=== PATIENT | female | born 1980 | race Caucasian/White ===

== ENCOUNTER 2017-05-07 23:11 | Emergency (ER) | payer MEDICAID ==
[2017-05-08 00:10] LABS: URINE BILIRUBIN NEGATIVE (NEGATIVE); URINE BLOOD SMALL (NEGATIVE); URINE GLUCOSE (UA) 500 mg/dL (NEGATIVE); URINE KETONE NEGATIVE (NEGATIVE); URINE PROTEIN NEGATIVE (NEGATIVE); URINE UROBILINOGEN 0.2 E.U./dL (0.2 - 1.0)
[2017-05-08 00:13] LABS: URINE COLOR YELLOW
[2017-05-08 00:18] LABS: URINE BACTERIA MODERATE /hpf (NONE SEEN); URINE EPITHELIAL CELLS MANY /lpf (FEW)
[2017-05-08] MEDS ORDERED: Morphine Sulfate 2 mg/mL 1mL Syr IVP ONE (00:29)
--- NOTE | 2017-05-08 00:29 | ED Physician Chart ---
Chief Complaint/HPI - Patient Information Date Seen:: 05/07/17 Time Seen:: 23:20 Chief Complaint:: Flank Pain History of Present Illness:: onset x one day of flank pain and hematuria; pt denies H/As, Neck Pain, C/P, SOB , Cough, Abd. Pain, A/N/V/D/C, fever, chills, or pelvic pain Allergies:: Allergies Allergy/AdvReac Type Severity Reaction Status Date / Time ibuprofen [From Motrin] Allergy Verified 05/07/17 23:35 ketorolac [From Toradol] Allergy Verified 05/07/17 23:35 Vitals:: Vital Signs - 8 hr 05/07/17 23:20 Temp 97.7 F HR 113 RR 18 BP 129/76 O2 Sat % 100 Historian:: Patient Review:: Nurse's Note Reviewed Review of Systems - Review of Systems General/Constitutional: Fever, Chills, No weight loss, No weakness, No diaphoresis, No edema, No loss of appetite Skin: No skin lesions, No rash, No bruising Head: No headache, No light-headedness Eyes: No loss of vision, No pain, No diplopia ENT: No earache, No nasal drainage, No sore throat, No tinnitus Neck: No neck pain, No swelling, No thyromegaly, No stiffness, No mass noted Cardio Vascular: No chest pain, No palpitations, No PND, No orthopnea, No edema Pulmonary: No SOB, No cough, No sputum, No wheezing GI: Nausea, Vomiting, Diarrhea, Pain, No melena, No hematochezia, Constipation, No hematemesis G/U: Dysuria, Frequency, Hematuria [employer]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, No abnormal vaginal bleed, No contraction Musculoskeletal: No bone or joint pain, Back pain, No muscle pain Endocrine: No polyuria, No polydipsia Psychiatric: No prior psych history, No depression, No anxiety, No suicidal ideation Hematopoietic: No bruising, No lymphadenopathy Allergic/Immuno: No urticaria, No angioedema Neurological: No syncope, No focal symptoms, No weakness, No paresthesia, No headache, No seizure, No dizziness, No confusion, No vertigo Past Medical History - Past Medical History Obtainable: Yes Past Medical History: DM, Renal stone Family History: Diabetes Melitus, HTN Social History: Non Smoker, No Drug Use, Single Surgical History: other (Lithotripsy) Psychiatricy History: None Medication: Reviewed Family Medical History - Family Member Grandmother Hx Family Cancer: Yes (BREAST) Physical Exam - Physical Examination General/Constitutional: Awake, Well-developed, well-nourished, Alert, No distress, GCS 15, Non-toxic appearing, Ambulatory Head: Atraumatic Eyes: Lids, conjuctiva normal, PERRL, EOMI Skin: Nl inspection, No rash, No skin lesions, No ecchymosis, Well hydrated, No lymphadenopathy ENMT: External ears, nose nl, Nasal exam nl, Lips, teeth, gums nl Neck: Nontender, Full ROM w/o pain, No JVD, No nuchal rigidity, No bruit, No mass, No stridor Respiratory: Nl effort/Exclusion, Clear to Auscultation, No Wheeze/Rhonchi/Rales Cardio Vascular: RRR, No murmur, gallop, rubs, NL S1 S2 GI: No tenderness/rebounding/guarding, No organomegaly, No hernia, Normal BS's, Nondistended, No mass/bruits, No McBurney tenderness Other comments:: + CVAT Extremities: No tenderness or effusion, Full ROM, normal strength in all extremities, No edema, Normal digits & nails Neuro/Psych: Alert/oriented, DTR's symmetric, Normal sensory exam, Normal motor strength, Judgement/insight normal, Mood normal, Normal gait, No focal deficits Misc: normal gait, Normal back, No paraspinal tenderness Labs/Radiology/EKG Results - Lab Results Results: Laboratory Tests 05/07/17 05/07/17 23:45 23:45 Urine Source CLEAN C Urine Color YELLOW Urine Clarity SLIGHT CLOUDY Urine pH 6.0 Ur Specific [place] 1.020 Urine Protein NEGATIVE Urine Glucose (UA) 500 H Urine Ketones NEGATIVE Urine Blood SMALL H Urine Nitrate NEGATIVE Urine Bilirubin NEGATIVE Urine Urobilinogen 0.2 Ur Leukocyte Esterase MODERATE H Urine RBC 2-5 Urine WBC 10-25 H Ur Epithelial Cells MANY Urine Bacteria MODERATE Urine Test NEGATIVE Comments:: Na+: 132;b Glucose: 259 - Radiology Results Results: + Calculi with mild hydronephrosis - EKG Interpretations EKG Time:: 00:45 Rate & Rhythm: 95; NSR Comments:: non-specific st-t changes ED Septic Shock - . Is Septic Shock (SBP<90, OR Lactate>4 mmol\L) present?: No - <6hrs of presentation: Vital Signs: Vital Signs - 8 hr 05/07/17 23:20 Temp 97.7 F HR 113 RR 18 BP 129/76 O2 Sat % 100 Reassessment (Disposition) - Reassessment Reassessment Condition:: Improved - Diagnosis Diagnosis:: Dx: Nephrolithiasis; UTI; Hematuria; Flank Pain; Cystitis; Hyperglycemia; Hyponatremia; Mulptiple Calculi; Hydronephrosis - Aftercare/Follow up Instructions Aftercare/Follow-Up Instructions:: Counseled pt regarding lab results/diagnosis & need follow up, Refer to Discharge Instructions, Counseled pt & family regarding lab results/diagnosis & need follow up Medication Prescribed:: Rx: Macrobid 100mg po bid x 10 days - Patient Disposition Discharge/Transfer:: Against Medical Advice Accepting Physician:: Dr. Hunter Time Called:: 229 Time Responded:: 02:30 Spoke to:: Dr. Hunter Admitting Medical Physician:: Dr. Hunter Condition at Disposition:: Stable (RTER prn if existing s/s reoccur and/or get worse and/or any other new s/s occur; ACIs given for all above Dx; X-Rays Instructions; Refer to Urologist/Changeover Operator/Steam Box Hand ASH; F/U with PMD today or prn ; RTER prn if concerned), Improved (RTER prn if existing s/s reoccur and)
[2017-05-08] MEDS ORDERED: Sodium Chloride 0.9% 1,000 ML IV ONE (00:31)
[2017-05-08] MEDS ORDERED: cefTRIAXone 1 GM in Sodium Chloride 0.9% 50 ML IV ONE (00:41)
[2017-05-08 00:44] LABS: % BASOPHILS 0.8 % (0.0-2.0); % EOSINOPHILS 2.3 % (0.0-5.0); % LYMPHOCYTES 29.8 % (20.0-50.0); % MONOCYTES 6.1 % (2.0-10.0); HEMATOCRIT 34.5 % (35.0-45.0); HEMOGLOBIN 11.5 gm/dL (11.7-15.5); MEAN CELL VOLUME 73.4 fl (81-100); MEAN CORPUSCULAR HEMOGLOBIN 24.5 pg (27.0-31.0); MEAN CORPUSCULAR HGB CONC 33.3 pg (28.0-36.0); MEAN PLATELET VOLUME 9.2 fl; NEUTROPHILE ABSOLUTE 3.6 Th/cmm (1.8-8.0); PLATELET COUNT 166 Th/cmm (150-400); RED CELL DISTRIBUTION WIDTH 15.3 % (11.5-20.0); WHITE BLOOD COUNT 5.9 Th/cmm (4.8-10.8)
[2017-05-08] MEDS ORDERED: Morphine Sulfate 2 mg/mL 1mL Syr ONE ×2 (00:44→02:01)
[2017-05-08 00:55] LABS: INR 0.92 (0.5-1.4); PROTHROMBIN TIME (TEST) 9.6 SECONDS (9.5-11.5)
[2017-05-08 00:56] LABS: ALB/GLOB RATIO 1.1 (1.0-1.8); ALKALINE PHOSPHATASE 53 U/L (34-104); AMYLASE SERUM 33 U/L (29-103); ANION GAP 11.6 (7.0-16.0); BILIRUBIN,TOTAL 0.3 mg/dL (0.3-1.0); BUN - UREA NITROGEN 10 mg/dL (7-25); BUN/CREATININE RATIO 12.5; CALCIUM SERUM 9.7 mg/dL (8.6-10.3); CARBON DIOXIDE 25.4 mEq/L (21.0-31.0); CHLORIDE 99 mEq/L (98-107); CHOLESTEROL 236 mg/dL (<200); CREATININE - SERUM 0.8 mg/dL (0.6-1.2); GLUCOSE 259 mg/dL (70-105); LIPASE 26 U/L (11-82); SGOT 23 U/L (13-39); SGPT/ALT 31 U/L (7-52); SODIUM SERUM 132 mEq/L (136-145); TRIGLYCERIDES 372 mg/dL (<150)
[2017-05-08 00:57] LABS: TROP I < 0.01 ng/mL (0.01-0.05)
[2017-05-08 01:01] LABS: BNP 8.1 pg/mL (5.0-100.0)
--- NOTE | 2017-05-08 08:23 | Diagnostic Imaging Report ---
CT scan abdomen and pelvis without intravenous contrast HISTORY: Pain Total DLP equals 903 CTDI equals 16.7 Axial sections were obtained from the xiphoid process down to the pubic symphysis. The liver is enlarged. There is a decrease in overall hepatic parenchymal density consistent with fatty infiltration. The findings should be correlated with liver function tests. No focal lesions. The spleen is enlarged. Surgical clips are noted in the vero hepatis region consistent with a prior cholecystectomy. No abnormality seen in the region of the pancreas. There is an approximate 2.0 cm calculus situated in the right renal pelvis. A relatively large (1.8 cm) calculus also noted in the collecting system of the right kidney. Findings are associated with mild hydronephrosis. The left kidney demonstrates a punctate nonobstructing calculus. Mild fullness of the collecting system. The pelvis demonstrates preservation of normal fat planes. No abnormal soft tissue masses or abnormal fluid collections. No bowel dilatation. IMPRESSION: 1. Approximate 2.0 cm calculus situated within a mildly dilated right renal pelvis. Additional 1.8 cm calculus noted in the collecting system of the right kidney with mild hydronephrosis. 2. Punctate nonobstructing left renal calculus 3. Hepatosplenomegaly. Additional findings consistent with hepatic fatty infiltration. The changes should be correlated with liver function tests. 4. Status post cholecystectomy
== END 2017-05-08 02:45 | disposition left against medical advice (07) ==
LOC: ER 23:11
DX: N20.0 Calculus of kidney (principal); N39.0 Urinary tract infection, site not specified; N30.91 Cystitis, unspecified with hematuria; E87.1 Hypo-osmolality and hyponatremia; N13.30 Unspecified hydronephrosis; E11.65 Type 2 diabetes mellitus with hyperglycemia; Z88.6 Allergy status to analgesic agent; Z88.8 Allergy status to other drugs, medicaments and biological substances
CPT/HCPCS: 99285; 96365; 96375; 96376; 84484; 83880; 36415 ×2; 83605; 85025; 85610; 85730; 87086; 81001; 82150; 82550; 83036; 84703; 81025; 83690; 80053; 80061; 87040 ×2; 93005; 74176; J2270 ×2; J2405; J0696; 81003-TC; 94760; J7030